=== PATIENT | female | born 1960 | race African-American/Black ===

== ENCOUNTER 2018-09-13 11:16 | Outpatient (CLI) | payer BC, OTHER ==
--- NOTE | 2018-09-13 12:57 | RAD ---
RIGHT KNEE TWO VIEWS: HISTORY: Right knee pain. FINDINGS: No fracture, dislocation, or bony destruction is seen. Degenerative changes are noted, most prominen t in the medial tibiofemoral compartment. POS: [facility]
== END 2018-09-13 11:17 | disposition home or self-care (01) ==
LOC: NAV RAD 11:16
PROVIDERS: ATTEND Family Medicine
DX: M17.11 Unilateral primary osteoarthritis, right knee (principal)